=== PATIENT | male | born 1945 | race Caucasian/White ===

== ENCOUNTER → 2017-02-15 | Outpatient (CLI) | payer MEDICARE, BC ==
[~2017-02-15] MED LIST: ALLO100 PO; ALLO100T PO; ASPI-110 PO; ASPI81TA82 PO; CARB25TA PO; CLON0.5T PO; CYAN1000P SQ; DIOV320T PO; FISH1000 PO; FISH100020 PO; GABA100C4 PO; GLIP10TA6 PO; GLIP5 PO; METO50TA PO; NIAC50TA PO; SIMV10TA PO; SINE25TA PO; VALS1TAB70 PO
[2017-02-15 11:18] LABS: AUTOMATED NEUTROPHIL # 3.2 TH/MM3 (1.8-7.7); BASOPHIL # 0.1 TH/MM3 (0-0.2); EOSINOPHIL # 0.2 TH/MM3 (0-0.4); EOSINOPHIL % 3.3 % (0.0-4.0); HEMATOCRIT 40.8 % (39.0-51.0); HEMO FLAGS DIFF FINAL; LYMPH % 29.8 % (9.0-44.0); LYMPHOCYTE # 1.7 TH/MM3 (1.0-4.8); MEAN CELL VOLUME 86.6 FL (80.0-100.0); MEAN CORPUSCULAR HEMOGLOBIN 29.2 PG (27.0-34.0); MEAN CORPUSCULAR HGB CONC 33.7 % (32.0-36.0); MONO % 10.2 % (0.0-8.0); NEUT % 55.7 % (16.0-70.0); PLATELET COUNT 190 TH/MM3 (150-450); RED BLOOD COUNT 4.71 MIL/MM3 (4.50-5.90); RED CELL DISTRIBUTION WIDTH 14.9 % (11.6-17.2); WHITE BLOOD COUNT 5.8 TH/MM3 (4.0-11.0)
[2017-02-15 11:26] LABS: APTT (PATIENT) 25.8 SEC (24.3-30.1); INTERNATIONAL NORMALIZED RATIO 0.9 RATIO; PROTHROMBIN TIME - PATIENT 10.4 SEC (9.8-11.6)
[2017-02-15 11:33] LABS: BLOOD, URINE NEG (NEG); COMMENT (UR) CULT NOT INDICATED; CULTURE IF INDICATED CULT NOT INDICATED; GLUCOSE,URINE NEG (NEG); KETONE, URINE NEG (NEG); MUCUS URINE FEW /lpf (OCC); NITRITE,URINE NEG (NEG); PH, URINE 5.5 (5.0-8.5); URINE COLOR YELLOW (YELLW/STRAW)
[2017-02-15 11:45] LABS: ANION GAP 9 MEQ/L (5-15); AST (GOT) 15 U/L (15-37); BICARBONATE 23.9 MEQ/L (21.0-32.0); BLOOD UREA NITROGEN 23 MG/DL (7-18); CHLORIDE 107 MEQ/L (98-107); GLOMERULAR FILTRATION RATE 56 ML/MIN (>89); GLUCOSE,FASTING 80 MG/DL (74-99); POTASSIUM 4.2 MEQ/L (3.5-5.1); SODIUM (NA) 140 MEQ/L (136-145)
[2017-02-15 11:46] LABS: ALT (GPT) 12 U/L (12-78)
[2017-02-15 11:49] LABS: ALKALINE PHOSPHATASE 69 U/L (45-117); TOTAL BILIRUBIN ADULT 0.4 MG/DL (0.2-1.0)
--- NOTE | 2017-02-16 23:59 | EKG ---
Date Performed: 02/15/2017 Time Performed: 09:14:12 PTAGE: 71 years EKG: ELECTRONIC ATRIAL PACEMAKER ELECTRONIC VENTRICULAR PACEMAKER ABNORMAL RHYTHM ECG PREVIOUS TRACING : 07/16/2008 22.45 Compared to prior tracing no significant change DOCTOR: Emiliano Hill Interpretating Date/Time 02/16/2017 23:58:11
== END ==
LOC: CPRE 08:48
PROVIDERS: ATTEND Surgery
DX: Z01.812 Encounter for preprocedural laboratory examination (principal); Z01.810 Encounter for preprocedural cardiovascular examination
CPT/HCPCS: 36415; 80053; 81001; 85025; 85610; 85730; 93005

== ENCOUNTER → 2017-02-18 | Day surgery (SDC) | payer MEDICARE, BC ==
--- NOTE | 2017-02-16 18:29 | MH ---
cc: Singh SAAB DATE OF ADMISSION 02/18/2017 ADMISSION DIAGNOSIS Internal derangement right knee now for arthroscopy right knee. HISTORY OF PRESENT ILLNESS This pleasant 71-year-old male is being admitted today for arthroscopic debridement of his right knee due to internal derangement including gout. PAST MEDICAL HISTORY 1. History of diabetes, 2. Pacemaker with cardiac stent 10 years ago, 3. Parkinson's, 4. Hypertension, 5. Sleep apnea 6. Arthritis, PAST SURGICAL HISTORY 1. Two scopes in his right knee 2. Pacemaker insertion. MEDICATIONS 1. Dopamine 2. Niacin 3. Metoprolol 4. Glipizide. 5. Metformin. 6. Diovan. 7. Allopurinol. 8. Clonazepam. REVIEW OF SYSTEMS Noncontributory. FAMILY HISTORY Noncontributory. SOCIAL HISTORY Does not smoke. Drinks two beers a month. ALLERGIES He has no known allergies. PHYSICAL EXAMINATION GENERAL: A 71-year male well-developed, well-nourished oriented x3 complaining of pain in his right knee. VITAL SIGNS: Blood pressure 100/64, pulse 96, respirations 18, temperature 98.0, pulse oximetry 97% on room air. HEENT: Eyes PERRLA, EOMI. Ears, nose, mouth clear. NECK: Supple LUNGS: Clear HEART: Regular rate. ABDOMEN: Soft. Positive bowel sounds, nontender. EXTREMITIES: Right knee tender, crepitance noted. Neurovascularly to his toes. IMPRESSION Internal derangement right knee including gout and mild arthritis. PLAN Arthroscopic debridement right knee today. The patient is given prescription for postoperative pain control in the office. MD MILLIE Arambula/ /6:19 PM /6:23 PM
[~2017-02-18] VITALS: Ht 177.8 cm; Wt 126.1 kg
[~2017-02-18] MED LIST changes: +*RESP: ALBUTEROL 2.5 MG/3 ML NEB (PRN) PERIprocedural Use ONLY NEB ONE; +ACETAMINOPHEN 1000 MG/100 ML VIAL IV ONE; +ACETAMINOPHEN/HYDROcodone 325 MG/5 MG TAB PO PRN; -ALLO100 PO; -ASPI81TA82 PO; +BUPIVACAINE HCL PF 0.25% 30 ML VIAL ONE; -CARB25TA PO; +CHLORHEXIDINE GLUCONATE 2 % 1 PACK (2 CLOTHS) TOPICAL PRN; +CHLORHEXIDINE GLUCONATE 4% SOLN 120 ML BTL TOPICAL SCH; +DEXAMETHASONE SOD PHOS 4 MG/ML VIAL ONE; +DEXAMETHASONE SOD PHOS 4 MG/ML VIAL OTHER ONE; -DIOV320T PO; +DO NOT ADM ANY ANTICOAGULANT DRUGS PRN; +FAMOTIDINE 20 MG/2 ML VIAL ONE; -FISH100020 PO; -GLIP5 PO; +INSULIN HUMAN REGULAR 1,000 UNITS/10 ML VIAL SQ PRN; +LACTATED RINGER'S 1000 ML INJ 1,000 ML IV ONE; +LACTATED RINGER'S 1000 ML IV PRN; +MEPERIDINE HCL 50 MG/ML VIAL IM PRN; +METOPROLOL TARTRATE 25 MG TAB PO PRN; +MIDAZOLAM HCL 2 MG/2 ML VIAL ONE; +NEOSTIGMINE 3 MG/3 ML SYR IV ONE; +ONDANSETRON HCL 4 MG/2 ML VIAL IV PUSH ONE; +ONDANSETRON ODT 4 MG TAB PO PRN; +PHENYLEPH/NS 1000 MCG/10 ML SYR IV ONE; +POVIDONE IODINE 5% (ANTISEPSIS KIT) 4 APPLICATIONS EACH NARE PRN; +PROPOFOL 200 MG/20 ML AMP IV ONE; +SODIUM CHLORID 0.9% 500 ML IV PRN; +ceFAZolin 2 GM PREMIX 50 ML IV SCH; +fentaNYL CITRATE 250 MCG/5 ML AMP ONE
[2017-02-18 10:15] VITALS: BP 119/78; PULSE 68; RESP 16; TEMP 98.2; O2SAT 95
[2017-02-18 14:31] VITALS: BP 108/65; PULSE 63; RESP 20; TEMP 97.2; O2SAT 93
--- NOTE | 2017-02-19 17:50 | MP ---
cc: Singh SAAB DATE OF SURGERY 02/18/17 PREOPERATIVE DIAGNOSIS Gout and arthritis right knee. POSTOPERATIVE DIAGNOSIS Gout and arthritis right knee plus loose bodies SURGERY PERFORMED Arthroscopy, excision of loose body and a complete synovectomy right knee. SURGEON Dr. Marilou Saab OFFENDER EMPLOYMENT SPECIALIST DONTA Whitt ANESTHESIA LMA PROCEDURE IN DETAIL The patient was brought to the operating room and placed on the operating room table in the supine position. After successful induction of general anesthesia, the patient's right leg was prepped and draped in the usual manner. The knee was then placed in a knee caldwell and tightened. Arthroscopic examination was then performed by making a stab wound over the proximal superior and medial aspect of the patellofemoral joint for insertion of the inflow cannula and fluid, followed by stab wounds over the medial and lateral joint margins respectively for insertion of the arthroscope, shaver and probe. Arthroscopic examination was then performed which revealed intact medial compartment, intact lateral compartment, intact patellofemoral joint, intact anterior cruciate, moderate arthritic degeneration noted but hypertrophic synovium was noted throughout all three compartments of the knee. This was debrided using the ArthroCare shaver and hemostasis achieved using the ArthroCare system. A loose body measuring 1.2 cm in diameter was found and removed which was found to be entrapped in the lateral compartment. The rest of the knee joint was found to be intact. The wound irrigated copiously with lactated Ringer's solution and, after meticulous hemostasis achieved and the fluid removed, 4 mL of 0.25% Marcaine plain and 4 mL of Decadron inserted into knee joint. Skin approximated with interrupted 4-0 nylon suture. Wet and then dry dressing applied to the wound followed by Xeroform gauze, sterile dressing, thigh-high Geo wrap. No tourniquet utilized. Estimated blood loss 10 mL. Sponge and suture count correct. DONTA Barnes, was present during the entire procedure to include patient positioning and the procedure. The medical necessity of the nurse practitioner economist research assistant was indicated in this case due to the surgical complexity of the case itself. During the surgical case, the director medical surgical was working the back table while my surgical garment inspector DONTA was directly assisting me. The patient tolerated the procedure well and left the operating room in satisfactory condition. J. MD VEENA Meredith /12:58 PM /5:42 PM
== END | disposition home or self-care (01) ==
LOC: HSDC 09:44
PROVIDERS: ATTEND Surgery
DX: M17.11 Unilateral primary osteoarthritis, right knee (principal); M10.9 Gout, unspecified; M23.41 Loose body in knee, right knee
CPT/HCPCS: 01400; 29876; 94664; J0131; J1100; J2250; J2370; J2405; J2710; J3010; J7120; J7613